=== PATIENT | male | born 2000 ===

== ENCOUNTER 2018-10-21 20:03 | Emergency (ER) ==
[2018-10-21] MEDS ORDERED: ACETAMINOPHEN 325 MG TABLET PO ONE (20:58)
--- NOTE | 2018-10-21 22:16 | RADIOLOGY REPORT (SQ) ---
EXAM DESCRIPTION: XR FOREARM 2 VIEWS COMPLETED DATE/TME: 10/21/2018 21:16 CLINICAL HISTORY: 17 years, Male, dog bite COMPARISON: None. FINDINGS/impression: Minimally displaced fracture of the distal radial metaphysis cortex. The bones are otherwise intact. Soft tissue swelling and emphysema consistent with puncture wounds.
== END 2018-10-21 23:30 | disposition left against medical advice (07) ==
LOC: ER 20:03
DX: Z53.21 Procedure and treatment not carried out due to patient leaving prior to being seen by health care provider (principal)